=== PATIENT | male | born 1970 | race Two or more races ===

== ENCOUNTER → 2017-05-02 | Outpatient (CLI) | payer OTHER | END | disposition home or self-care (01) | LOC: LAB 09:00 | DX: L82.1 Other seborrheic keratosis (principal) ==

== ENCOUNTER 2024-03-05 14:55 | Emergency (ER) | payer OTHER ==
[2024-03-05 15:02] VITALS: PULSE 86
== END 2024-03-05 16:27 | disposition left against medical advice (07) ==
LOC: ER 14:55
DX: R07.89 Other chest pain (principal); E78.5 Hyperlipidemia, unspecified; I10 Essential (primary) hypertension; Z90.49 Acquired absence of other specified parts of digestive tract; W18.30XA Fall on same level, unspecified, initial encounter; Y93.89 Activity, other specified; Y92.89 Other specified places as the place of occurrence of the external cause; Y99.8 Other external cause status
CPT/HCPCS: 93005